=== PATIENT | male | born 1985 | race Caucasian/White ===

== ENCOUNTER 2025-03-01 21:38 | Emergency (ER) | payer OTHER, SELFPAY ==
[2025-03-01 21:47] VITALS: BP 165/112; PULSE 75; TEMP 36.9; O2SAT 98; BMI 50.2
--- OUTSIDE RECORDS SUMMARY | 2025-03-01 21:48 | XMS_ITS | Encounter Summary ---
Author Organization [facility] Address [address] [place] [address] Phone Care Team Providers Care Team Leader Surgery Name Role Phone Unavailable Primary Care Provider Unavailabl e Encounter Details Date Type Department Care Team (Late st Contact Info) Description 05/01/2023 Patient Risk Score ACO Care Management [address] [place] [address] Social History Tobacco Use Types Packs/Day Years Used Date Smoking Tobacco: Never Assessed Sex and Gender Information Value Date Recorded Sex Assigned at Not on file Legal Sex Male 12:54 PM EST Gender Identity Not on file Sexual Orientation Not on file documented as of this encounter Plan of Treatment Not on file documented as of this encounter Visit Diagnoses Not on filedocumented in this encounter
--- OUTSIDE RECORDS SUMMARY | 2025-03-01 21:48 | XMS_ITS | Encounter Summary ---
Author Organization [facility] Address [address] [place] [address] Phone Care Team Providers Care Jacquard Card Cutter Name Role Phone Unavailable Primary Care Provider Unavailabl e Encounter Details Date Type Department Care Team (Late st Contact Info) Description 02/28/2023 Patient Risk Score ACO Care Management [address] [place] [address] Social History Tobacco Use Types [...]
--- OUTSIDE RECORDS SUMMARY | 2025-03-01 21:48 | XMS_ITS | Continuity of Care Document ---
Author Organization [facility] Address [address] [place] [address] Phone Care Team Providers Care Enterprise Application Developer Name Role Phone Royce Boom JURADO Primary Care Provider [phone] Boom Crane DO Attending Provider Allen Ewing DO Attending Provider Care Teams Patient Care Team Team Status: Active Member Role Status Dates Boom Crane DO Primary Care Provider Active Visit Care Team Team Status: Inactive Member Role Status Jun Crane DO Primary Care Provider Active S tart: December 15, 2024 End: December 15, 2024 Boom Crane DO Attending Provider Active Star t: December 15, 2024 End: December 15, 2024 Visit Care Team Team Status: Inactive Member Role Status Jun Crane DO Primary Care Provider Active S tart: December 18, 2024 End: December 18, 2024 Boom Craen DO Attending Provider Active Star t: December 18, 2024 End: December 18, 2024 Visit Care Team Team Status: Inactive Member Role Status Jun Crane DO Primary Care Provider Active S tart: January 04, 2025 End: January 04, 2025 Allen Ewing DO Attending Provider Active Start: January 04, 2025 End: January 04, 2025 Visit Care Team Team Status: Inactive Member Role Status Jun Crane DO Primary Care Provider Active S tart: February 14, 2025 End: February 14, 2025 Allen Ewing DO Attending Provider Active Start: February 14, 2025 End: February 14, 2025 Visit Care Team Team Status: Inactive Member Role Status Dates Boom Crane DO Primary Care Provider Active S tart: February 20, 2025 End: February 20, 2025 Allen Ewing DO Attending Provider Active Start: February 20, 2025 End: February 20, 2025 Visit Care Team Team Status: Inactive Member Role Status Dates Boom Crane DO Primary Care Provider Active S tart: February 20, 2025 End: February 20, 2025 Allen Ewing DO Attending Provider Active Start: February 20, 2025 End: February 20, 2025 Patient Care Team Team Status: Inactive Member Role Status Dates Boom Crane DO Primary Care Provider Active S tart: February 25, 2025 End: February 25, 2025 Allen Ewing DO Attending Provider Active Start: February 25, 2025 End: February 25, 2025 Chief Complaint and Reason for Visit Chief Complaint Admit Date Z79.899, E78.5, R73.9, R35.1, E11.9 Apri l 2024 11:03am review labs December 18, 2024 9:1 3am low back pain and Left hip pain January 04, 2025 7:23am sacroiliac joint pain/ strength enduranc e ROM February 14, 2025 10:00am 7 week follow up February 20, 2025 8:14 am G89.29 M53.3 M54.50 February 20, 2025 9:05 am Left SI joint injection February 25, 2025 1:52pm Reason for Visit Admit Date Diabetes December 18, 2024 9:1 3am Hip pain, left December 18, 2024 9:1 3am Hyperlipidemia December 18, 2024 9:1 3am Hypertension December 18, 2024 9:1 3am Lumbar pain December 18, 2024 9:1 3am Mass in neck December 18, 2024 9:1 3am Umbilical hernia December 18, 2024 9:1 3am Weight loss December 18, 2024 9:1 3am Piriformis syndrome of left side December 7:23am Trochanteric bursitis, left hip January 04, 2025 7:23am Iliotibial band syndrome of left side Ma y 2024 7:23am Chronic SI joint pain January 04, 2025 7:23 am Piriformis syndrome of left side February 202024 8:14am Iliotibial band syndrome of left side Ju 2024 8:14am Low back pain February 20, 2025 8:14 am Chronic SI joint pain February 20, 2025 8: 14am Reason for Referral Referring Provider Name Referring Provider Address Referring Provider Phone Referral Date Requested Appointment Date Referral Reason January 04, 2025 G89.29 - Other chronic pain,M53.3 - Sacrococcygeal disorders, not elsewhere classified,G57.02 - Lesion of sciatic nerve, left lower limb,M70.62 - Trochanteric bursitis, left hip,M76.32 - Iliotibial band syndrome, left leg Allergies, Adverse Reactions, Alerts Allergen Type Severity Reaction Last Updated Verified Status codeine Allergy Unknown Anaphylaxis January 04, 2025 7:26am Yes Active morphine Allergy Unknown Anaphylaxis January 04, 2025 7:26am Yes Active Social History Smoking Status Status Start Date End Date Date of Observa tion Never smoked tobacco (finding) December 05, 2023 9:14am Observation Status Observation Response Date of Response Legal Sex Male (finding) Sex Assigned At Male October Family History Relationship Condition Age at Onset Recorded Date/T emilie mother Hyperlipidemia Unknown Hypertension Unknown father Hyperlipidemia Unknown Hypertension Unknown Diabetes mellitus Unknown Malignant neoplasm Unknown father Diabetes mellitus Unknown Hypertension Unknown mother Hypertension Unknown Problems Active Problems Medical Problem Onset Date Status Comments Diabetes Unknown Active Mass in neck Unknown Active Umbilical hernia Unknown Active Hyperlipidemia Unknown Active Weight loss Unknown Active Enlarged lymph node in neck Unknown Active Lumbar pain Unknown Active Knee pain, left Unknown Active Hip pain, left Unknown Active Sacroiliac pain Unknown Active left side Abdominal pain Unknown Active Hypertension Unknown Active Pneumonia Unknown Active Inactive/Resolved Problems Medical Problem Onset Date Status Comments Abrasion, multiple sites Unknown Resolved Medications Medication Status Dose Units Route Directions Qty Days St art Date Stop Date End Date Instructions Adherence Sumatriptan Succinate 100 mg tablet Discont inued 0 .ROUTE .COMPLEX 2023 11:49a m March 05, 2024 9:43a m take 1 tablet by mouth at onset of migraine headache may repeat in 2 hours if needed. max 2/day Venlafaxine 75 mg capsule,ext ended release 24hr Discont inued 0 .ROUTE .COMPLEX December 09, 2023 8:42am February 06, 2024 8:55a m TAKE 1 CAPSULE BY MOUTH EVERY DAY WITH FOOD Hydrochloro thiazide 25 mg tablet Discont inued 0 .ROUTE .COMPLEX January 03, 2024 1:45pm Septe 2023 12:35 pm TAKE 1 TABLET BY MOUTH IN THE MORNING Losartan 100 mg tablet Discont inued 0 .ROUTE .COMPLEX January 03, 2024 1:45pm Septe 2023 12:35 pm TAKE 1 TABLET BY MOUTH EVERY DAY Propranolol 20 mg tablet Discont inued 0 PO .COMPLEX January 05, 2024 11:28a m January 05, 2024 11:30 am take 2 (20 MG) tablets in the AM and take 1 (20 MG) tablet in the PM Propranolol 20 mg tablet Discont inued 0 .ROUTE .COMPLEX January 05, 2024 11:29a m [facility] 2023 10:01 am TAKE 2 TABLETS BY MOUTH IN THE MORNING AND 1 TABLET IN THE EVENING Venlafaxine 75 mg capsule,ext ended release 24hr Discont inued 0 .ROUTE .COMPLEX February 06, 2024 8:55am [facility] 2023 12:36 pm TAKE 1 CAPSULE BY MOUTH EVERY DAY WITH FOOD Sumatriptan Succinate 100 mg tablet Discont inued 0 .ROUTE .COMPLEX March 05, 2024 9:43am [facility] 2023 12:37 pm TAKE 1 TABLET BY MOUTH AT ONSET OF MIGRAINE HEADACHE MAY REPEAT IN 2 HOURS IF NEEDED. MAX 2 TABS PER DAY. Losartan 100 mg tablet Discont inued 0 .ROUTE .COMPLEX 2023 12:33p m Septe er 2023 3:52p m TAKE 1 TABLET BY MOUTH EVERY DAY Hydrochloro thiazide 25 mg tablet Discont inued 0 .ROUTE .COMPLEX 30 2023 12:35p m Octob er 2023 11:12 am TAKE 1 TABLET BY MOUTH IN THE MORNING Losartan 100 mg tablet Discont inued 0 .ROUTE .COMPLEX 30 2023 3:51pm Octob er 2023 11:01 am TAKE 1 TABLET BY MOUTH EVERY DAY Hydrochloro thiazide 25 mg tablet Discont inued 0 .ROUTE .COMPLEX 30 Octobe r 2023 11:[address] 2023 12:32 pm TAKE 1 TABLET BY MOUTH IN THE MORNING Empaglifloz in (Jardiance) 25 mg tablet Discont inued 25 MG PO Every morning 30 Octobe r 2023 11:47a m [facility] 2023 12:55 pm Losartan 100 mg tablet Discont inued 0 .ROUTE .COMPLEX 30 Octobe r 2023 11:[address] 2023 12:36 pm TAKE 1 TABLET BY MOUTH EVERY DAY Hydrochloro thiazide 25 mg tablet Discont inued 0 .ROUTE .COMPLEX 30 Novemb er 2023 12:31p m [facility] 2023 12:36 pm TAKE 1 TABLET BY MOUTH IN THE MORNING Propranolol 20 mg tablet Discont inued 0 .ROUTE .COMPLEX 90 Novemb er [address] 10:[address] 2023 12:37 pm TAKE 2 TABLETS BY MOUTH IN THE MORNING AND 1 TABLET IN THE EVENING Empaglifloz in (Jardiance) 25 mg tablet Discont inued 0 .ROUTE .COMPLEX 30 Novemb er [address] 2023 12:36 pm TAKE 1 TABLET BY MOUTH EVERY DAY IN THE MORNING Dulaglutide (Trulicity) 0.75 mg/0.5 mL pen injector Discont inued 0 .ROUTE .COMPLEX 2 Novemb er 2023 12:[address] 2023 3:12p m inject 0.75 mg (0.5 mL) subcutaneousl y every week Losartan 100 mg tablet Discont inued 0 .ROUTE .COMPLEX 30 Novemb er 2023 1:16pm [facility]cem [facility] 2023 2:18p m TAKE 1 TABLET BY MOUTH EVERY DAY Venlafaxine 75 mg capsule,ext ended release 24hr Discont inued 75 MG PO Daily 30 Dece er 2023 12:26p m January 29, 2025 4:20p m Losartan 100 mg tablet Discont inued 0 .ROUTE .COMPLEX 30 Decemb er 2023 2:18pm Janua ry 2024 10:37 am TAKE 1 TABLET BY MOUTH EVERY DAY Dulaglutide (Trulicity) 1.5 mg/0.5 mL pen injector Discont inued 0 .ROUTE .COMPLEX 2 Januar y 5 1:44pm 2024 12:11 pm INJECT 1.5MG (0.5 ML) SUBCUTANEOUSL Y ONCE PER WEEK Sumatriptan Succinate 100 mg tablet Discont inued 0 .ROUTE .COMPLEX 9 2024 1:44pm 2024 10:37 am TAKE 1 TABLET BY MOUTH WHEN NEEDED FOR MIGRAINE HEADACHE MAY REPEAT IN 2 HOURS IF NEEDED. MAX 2 TABS PER DAY. Sumatriptan Succinate 100 mg tablet Active 100 MG PO .COMPLEX 9 2024 12:37p m 100 mg orally TAKE 1 TABLET BY MOUTH WHEN NEEDED FOR MIGRAINE HEADACHE MAY REPEAT IN 2 HOURS IF NEEDED. MAX 2 TABS PER DAY.; Unknown Metformin 500 mg tablet extended release 24 hr Active 0 .ROUTE .COMPLEX 60 2024 9:47am TAKE 2 TABLETS BY MOUTH EVERY DAY WITH EVENING MEAL Unknown Hydrochloro thiazide 25 mg tablet Discont inued 0 .ROUTE .COMPLEX October 30, 2024 4:29pm January 29, 2025 4:20p m TAKE 1 TABLET BY MOUTH IN THE MORNING Losartan 100 mg tablet Active 0 .ROUTE .COMPLEX November 19, 2024 9:57am TAKE 1 TABLET BY MOUTH EVERY DAY Unknown Dulaglutide (Trulicity) 3 mg/0.5 mL pen injector Active 0 .ROUTE .COMPLEX December 28, 2024 8:09am inject 3 mg (0.5 mL) subcutaneousl y every week Unknown Empaglifloz in (Jardiance) 25 mg tablet Active 0 .ROUTE .COMPLEX December 31, 2024 9:19am TAKE 1 TABLET BY MOUTH EVERY DAY IN THE MORNING Unknown Hydrochloro thiazide 25 mg tablet Active 0 .ROUTE .COMPLEX January 29, 2025 4:19pm TAKE 1 TABLET BY MOUTH IN THE MORNING Unknown Venlafaxine 75 mg capsule,ext ended release 24hr Active 0 .ROUTE .COMPLEX January 29, 2025 4:19pm TAKE 1 CAPSULE BY MOUTH EVERY DAY Unknown Propranolol 20 mg tablet Active 0 .ROUTE .COMPLEX January 29, 2025 4:19pm TAKE 2 TABLETS BY MOUTH IN THE MORNING AND 1 TABLET IN THE EVENING Unknown Sumatriptan Succinate (Imitrex) 100 mg Tablet Discont inued 100 MG PO As Directed as needed for Migraine Headache 2019 12:00a m Febru 2023 11:49 am Hydrochloro thiazide 25 mg Tablet Discont inued 25 MG PO Daily 2019 12:00a m January 03, 2024 1:45p m Propranolol 20 mg Tablet Discont inued 40 MG PO Every morning 2019 12:00a m December 05, 2023 9:56a m Propranolol 20 mg tablet Discont inued 20 MG PO Daily at bedtime 2019 12:00a m December 05, 2023 9:56a m Losartan 100 mg tablet Discont inued 100 MG PO Daily 2019 12:00a m January 03, 2024 1:46p m Propranolol 20 mg tablet Discont inued 40 MG PO Every morning December 05, 2023 9:55am January 05, 2024 11:29 am 2 in am 1 in pm Metformin 500 mg tablet extended release 24 hr Discont inued 1000 MG PO Daily November 04, 2023 1:00am December 05, 2023 9:09a m Empaglifloz in (Jardiance) 10 mg tablet Discont inued 10 MG PO Daily November 04, 2023 1:00am December 05, 2023 10:33 am Venlafaxine 75 mg capsule,ext ended release 24hr Discont inued 75 MG PO Daily November 04, 2023 1:00am December 09, 2023 8:45a m Metformin 500 mg tablet extended release 24 hr Discont inued 1000 MG PO Daily December 05, 2023 9:06am December 05, 2023 10:38 am 2 tablets by mouth daily with evening meal Metformin 500 mg tablet extended release 24 hr Discont inued 0 PO Daily December 05, 2023 10:37a m [facility] 2023 12:40 pm 2 tablets by mouth daily with evening meal Metformin 500 mg tablet extended release 24 hr Discont inued 500 MG PO .COMPLEX Novemb er 2023 12:39p m Febru 2024 9:48a m 500 mg orally 2 tablets by mouth daily with evening meal; with evening meal Blood-Gluco se Meter kit Active 0 .Route December 05, 2023 12:00a m As directed Blood Sugar Diagnostic (Blood Glucose Test) strip Active 0 .Route December 05, 2023 12:00a m As directed Lancets (Fingerstix Lancets) misc Active 0 .Route December 05, 2023 12:00a m As directed Empaglifloz in (Jardiance) 25 mg tablet Discont inued 25 MG PO Every morning 30 December 05, 2023 12:00a m Octob er 2023 11:47 am Nystatin 100,000 unit/gram powder Active 1 APPLIC TOPICA L Twice daily March 28, 2024 12:00a m Unknown Empaglifloz in (Jardiance) 25 mg tablet Discont inued 25 MG PO Every morning Novemb er 2023 12:34p m December 31, 2024 9:19a m Hydrochloro thiazide 25 mg tablet Discont inued 25 MG PO Every morning Novemb er 2023 12:34p m October 30, 2024 4:29p m Losartan 100 mg tablet Discont inued 100 MG PO Daily Novemb er [address] 2023 1:16p m Venlafaxine 75 mg capsule,ext ended release 24hr Discont inued 75 MG PO Daily Novemb er 2023 12:35p m Dece 2023 12:27 pm Propranolol 20 mg tablet Discont inued 20 [facility] 12:[facility] January 29, 2025 4:20p m 20 mg orally TAKE 2 TABLETS BY MOUTH IN THE MORNING AND 1 TABLET IN THE EVENING; Sumatriptan Succinate 100 mg tablet Discont inued 100 MG PO .COMPLEX Novemb er 2023 12:37p m 2024 1:44p m 100 mg orally TAKE 1 TABLET BY MOUTH AT ONSET OF MIGRAINE HEADACHE MAY REPEAT IN 2 HOURS IF NEEDED. MAX 2 TABS PER DAY.; Dulaglutide (Trulicity) 1.5 mg/0.5 mL pen injector Discont inued 1.5 MG SUBCUT every week 2 Novemb er 2023 1:00am 2024 1:44p m Diclofenac Sodium 75 mg tablet,elan yed release (DR/EC) Active 75 MG PO Twice daily as needed for pain February 20, 2025 12:00a m Unknown Doxycycline Hyclate 100 mg capsule Discont inued 100 MG PO Twice daily 20 10 Octobe r 2023 12:00a m [facility] 2023 12:29 pm Semaglutide (Ozempic) 0.25 mg or 0.5 mg (2 mg/3 mL) pen injector Discont inued 0.25 MG SUBCUT every week 3 Octobe r 2023 12:00a m Octob er 2023 2:15p m for 4 weeks Dulaglutide (Trulicity) 0.75 mg/0.5 mL pen injector Discont inued 0.75 MG SUBCUT every week 2 Octobe r [address] 2023 12:55 pm Dulaglutide (Trulicity) 3 mg/0.5 mL pen injector Discont inued 3 MG SUBCUT every week 2 [facility] 2023 1:00am December 28, 2024 8:10a m Azithromyci n 250 mg tablet Discont inued 0 PO .COMPLEX 6 [facility] 2023 1:00am [facility] 2023 1:06p m For 250 mg dose pack: take 500 mg today (day 1), then 250 mg for 4 days (days 2-5) PO Albuterol Sulfate 90 mcg/actuati on HFA aerosol inhaler Discont inued 2 PUFF INHALA TION EVERY 4-6 HOURS as needed for shortness of breath or wheezing 8.5 [facility] 2023 1:00am December 18, 2024 9:18a m Prednisone 20 mg tablet Discont inued 20 MG PO .COMPLEX 10 [facility] 2023 1:00am [facility] 2023 1:06p m Take 2 tabs po daily x 5 days Losartan 100 mg tablet Discont inued 100 MG PO Daily 2024 10:36a m November 19, 2024 9:58a m Sumatriptan Succinate 100 mg tablet Discont inued 100 MG PO .COMPLEX Augr y 2024 10:37a m Jan ry 2024 12:38 pm 100 mg orally TAKE 1 TABLET BY MOUTH WHEN NEEDED FOR MIGRAINE HEADACHE MAY REPEAT IN 2 HOURS IF NEEDED. MAX 2 TABS PER DAY.; Meloxicam 15 mg tablet Discont inued 15 MG PO Daily January 04, 2025 12:00a m February 20, 2025 8:37a m Immunizations Immunization Event Date Not Given Reason Dose Number Accounting File Clerk Lot Number Vaccine Information Statement (VIS) Detail Administration Location diphtheria, TT and pertussis vaccine January 27, 1988 diphtheria, TT and pertussis vaccine March 23, 1988 diphtheria, TT and pertussis vaccine May 24, 1988 diphtheria, TT and pertussis vaccine January 10, 1989 diphtheria, TT and pertussis vaccine February 23, 1993 Hepatitis B Vaccine, adol/ped dosage February 11, 2000 Hepatitis B Vaccine, adol/ped dosage March 24, 2000 Hepatitis B Vaccine, adol/ped dosage August 26, 2000 Hib, unspecified formulation June 09, 1989 Meningococcal Vaccine (MCV4P) April 07, 2006 Measles, Mumps, and Rubella Virus Vaccine January 10, 1989 Measles, Mumps, and Rubella Virus Vaccine February 11, 2000 trivalent poliovirus vaccine, live, oral January 27, 1988 trivalent poliovirus vaccine, live, oral March 23, 1988 trivalent poliovirus vaccine, live, oral January 10, 1989 trivalent poliovirus vaccine, live, oral February 23, 1993 Td(adult) unspecified formulation February 11, 2000 Tetanus, Diphtheria, Pertussis (Tdap) October 08, 2015 Tetanus, Diphtheria, Pertussis (Tdap) November 04, 2023 [id number] [facility] Procedures Procedure Date Performed Status Urine Culture December 15, 2024 completed XR lumbar spine AP/LAT/FLX/EXT February 20, 2025 9 :22am completed XR si joints February 20, 2025 9:22am completed Relevant Diagnostic Tests and/or Laboratory Data Laboratory Results Test Collection Date/Time Result Date/Time Result Interpretation Reference Range Result Comment Performing Site Correcte d White Blood Count December 15, 2024 11:10am December 15, 2024 12:20pm 7.8 10*3/uL 4.1-10.5 [facility] [id number] [address] [facility] [address] Uncorrec bharati WBC Count December 15, 2024 11:10am December 15, 2024 12:20pm 7.8 10*3/uL 4.1-10.5 [facility] [id number] [address] [facility] [address] Red Blood Count December 15, 2024 11:10am December 15, 2024 12:20pm 5.24 10*6/uL 3.90-5.60 [facility] [id number] [address] [facility] [address] Hemoglob in December 15, 2024 11:10am December 15, 2024 12:20pm 15.6 g/dL 13.0-17.0 [facility] [id number] [address] [facility] [address] Hematocr it December 15, 2024 11:10am December 15, 2024 12:20pm 45.2 % 38.8-50.0 [facility] [id number] [address] [facility] [address] Mean Corpuscu lar Volume December 15, 2024 11:10am December 15, 2024 12:20pm 86.2 fL 83.5-101 [facility] [id number] [address] [place] [address] Mean Corpuscu lar Hemoglob in December 15, 2024 11:10am December 15, 2024 12:20pm 29.8 pg 27.5-35.2 [facility] [id number] [address] [facility] [address] Mean Corpuscu lar Hemoglob in Concent December 15, 2024 11:10am December 15, 2024 12:20pm 34.5 g/dL 32.5-35.6 [facility] [id number] [address] [place] [address] Red Cell Distribu tion Width December 15, 2024 11:10am December 15, 2024 12:20pm 13.4 % 12.0-14.8 [facility] [id number] [address] [place] [address] Platelet Count December 15, 2024 11:10am December 15, 2024 12:20pm 202 10*3/uL 150-450 [facility] [id number] [address] [place] [address] Mean Platelet Volume December 15, 2024 11:10am December 15, 2024 12:20pm 9.2 fL 6.6-10.1 [facility] [id number] [address] [facility] [address] Neutroph ils (%) (Auto) December 15, 2024 11:10am December 15, 2024 12:20pm 61.1 % . [facility] [id number] [address] [facility] [address] Lymphocy wilberto (%) (Auto) December 15, 2024 11:10am December 15, 2024 12:20pm 29.2 % . [facility] [id number] [address] [facility] [address] Monocyte s (%) (Auto) December 15, 2024 11:10am December 15, 2024 12:20pm 8.0 % . [facility] [id number] [address] [facility] [address] Eosinoph ils (%) (Auto) December 15, 2024 11:10am December 15, 2024 12:20pm 1.1 % . [facility] [id number] [address] [facility] [address] Basophil s (%) (Auto) December 15, 2024 11:10am December 15, 2024 12:20pm 0.6 % . [facility] [id number] [address] [facility] [address] Nucleate d RBC Relative Count (auto) December 15, 2024 11:10am December 15, 2024 12:20pm 0.3 /100{WBC} 0-0.5 [facility] [id number] [address] [facility] [address] Neutroph ils # (Auto) December 15, 2024 11:10am December 15, 2024 12:20pm 4.8 10*3/uL 1.8-7.7 [facility] [id number] [address] [facility] [address] Lymphocy wilberto # (Auto) December 15, 2024 11:10am December 15, 2024 12:20pm 2.3 10*3/uL 1.00-4.8 [facility] [id number] [address] [facility] [address] Monocyte s # (Auto) December 15, 2024 11:10am December 15, 2024 12:20pm 0.6 10*3/uL 0.0-0.8 [facility] [id number] [address] [facility] [address] Eosinoph ils # (Auto) December 15, 2024 11:10am December 15, 2024 12:20pm 0.1 10*3/uL 0.0-0.45 [facility] [id number] [address] [facility] [address] Basophil s # (Auto) December 15, 2024 11:10am December 15, 2024 12:20pm 0.0 10*3/uL 0.0-0.2 [facility] [id number] [address] [facility] [address] Urine Color December 15, 2024 11:10am December 15, 2024 12:20pm Light-yel low Yellow [facility] [id number] [address] [facility] [address] Urine Appearan ce December 15, 2024 11:10am December 15, 2024 12:20pm Clear Clear [facility] [id number] [address] [place] [address] Urine Specific [place] December 15, 2024 11:10am December 15, 2024 12:21pm 1.035 Above high normal 1.001-1.03 0 [facility] [id number] [address] [facility] [address] Urine pH December 15, 2024 11:10am December 15, 2024 12:21pm 5.5 5.0-9.0 [facility] [id number] [address] [facility] [address] Urine Leukocyt e Esterase December 15, 2024 11:10am December 15, 2024 12:21pm Negative Negative [facility] [id number] [address] [place] [address] Urine Nitrite December 15, 2024 11:10am December 15, 2024 12:21pm Negative Negative [facility] [id number] [address] [place] [address] Urine Protein December 15, 2024 11:10am December 15, 2024 12:21pm Negative mg/dL Negative [facility] [id number] [address] [place] [address] Urine Glucose (UA) December 15, 2024 11:10am December 15, 2024 12:21pm >=1000 mg/dL Above high normal Normal [facility] [id number] [address] [facility] [address] Urine Ketones December 15, 2024 11:10am December 15, 2024 12:21pm Negative Negative [facility] [id number] [address] [facility] [address] Urine Urobilin ogen December 15, 2024 11:10am December 15, 2024 12:21pm Normal mg/dL Normal [facility] [id number] [address] [facility] [address] Urine Bilirubi n December 15, 2024 11:10am December 15, 2024 12:21pm Negative Negative [facility] [id number] [address] [facility] [address] Urine Occult Blood December 15, 2024 11:10am December 15, 2024 12:21pm Negative Negative [facility] [id number] [address] [facility] [address] Urine RBC December 15, 2024 11:10am December 15, 2024 12:21pm 1-2 [HPF] 0-4 [facility] [id number] [address] [facility] [address] Urine WBC December 15, 2024 11:10am December 15, 2024 12:21pm 1-2 [HPF] 0-4 [facility] [id number] [address] [facility] [address] Urine Squamous Epitheli al Cells December 15, 2024 11:10am December 15, 2024 12:21pm 1-2 [HPF] 0-2 [facility] [id number] [address] [facility] [address] Urine Bacteria December 15, 2024 11:10am December 15, 2024 12:21pm None seen [HPF] None Seen [facility] [id number] [address] [facility] [address] Urine Hyaline Casts December 15, 2024 11:10am December 15, 2024 12:21pm None [LPF] 0-8 [facility] [id number] [address] [facility] [address] Urine Mucus December 15, 2024 11:10am December 15, 2024 12:21pm Rare [LPF] [facility] [facility] [id number] [address] [facility] [address] Glucose Level December 15, 2024 11:10am December 15, 2024 12:36pm 104 mg/dL Above high normal 70-100 ADA recommended reference rangeRandom Glucose Reference Range is dependent on time and content of last meal. Glucose of more than 200 mg/dL in a nonstressed , ambulatory subject supports the diagnosis of Diabetes Mellitus. [facility] [id number] [address] [place] [id number] Blood Urea Nitrogen December 15, 2024 11:10am December 15, 2024 12:36pm 16 mg/dL 7-25 [facility] [id number] [address] [place] [id number] Creatini ne December 15, 2024 11:10am December 15, 2024 12:36pm 0.86 mg/dL 0.70-1.30 [facility] [id number] [address] [place] [id number] Estimate d GFR (CKD-EPI ) December 15, 2024 11:10am December 15, 2024 12:36pm > 60.0 mL/Min [facility] [id number] [address] [facility] [address] Sodium Level December 15, 2024 11:10am December 15, 2024 12:36pm 140 mmol/L 136-145 [facility] [id number] [address] [place] [id number] Potassiu m Level December 15, 2024 11:10am December 15, 2024 12:36pm 4.2 mmol/L 3.5-5.1 [facility] [id number] [address] [place] [id number] Chloride Level December 15, 2024 11:10am December 15, 2024 12:36pm 103 mmol/L 98-107 [facility] [id number] [address] [place] [id number] Carbon Dioxide Level December 15, 2024 11:10am December 15, 2024 12:36pm 28.2 mmol/L 21.0-31.0 [facility] [id number] [address] [place] [id number] Anion Gap December 15, 2024 11:10am December 15, 2024 12:36pm 13.0 mEq/L 6.0-15.0 [facility] [id number] [address] [place], [place] [id number] Calcium Level December 15, 2024 11:10am December 15, 2024 12:36pm 9.7 mg/dL 8.6-10.3 [facility] [id number] [address] [place] [address] Total Protein December 15, 2024 11:10am December 15, 2024 12:36pm 7.5 g/dL 6.4-8.9 [facility] [id number] [address] [place] [address] Albumin December 15, 2024 11:10am December 15, 2024 12:36pm 4.3 g/dL 3.5-5.7 [facility] [id number] [address] [place] [address] Globulin December 15, 2024 11:10am December 15, 2024 12:36pm 3.2 g/dL [facility] [id number] [address] [place] [address] Albumin/ Globulin Ratio December 15, 2024 11:10am December 15, 2024 12:36pm 1.3 [facility] [id number] [address] [place] [address] Total Bilirubi n December 15, 2024 11:10am December 15, 2024 12:36pm 0.7 mg/dL 0.3-1.0 [facility] [id number] [address] [place] [address] Aspartat e Amino Transf (AST/SGO T) December 15, 2024 11:10am December 15, 2024 12:36pm 22 U/L 13-39 [facility] [id number] [address] [place], [place] [address] Alanine Aminotra nsferase (ALT/SGP T) December 15, 2024 11:10am December 15, 2024 12:36pm 30 U/L 7-52 [facility] [id number] [address] [place], [place] [address] Alkaline Phosphat ase December 15, 2024 11:10am December 15, 2024 12:36pm 56 U/L 34-104 [facility] [id number] [address] [facility] [address] Choleste rol Level December 15, 2024 11:10am December 15, 2024 12:36pm 115 mg/dL Below low normal 140-200 Chol less than 200 mg/dl low riskChol 201-239 mg/dl borderline riskChol 240 mg/dl and greater high risk [facility] [id number] [address] [facility] [address] HDL Choleste rol December 15, 2024 11:10am December 15, 2024 12:36pm 38 mg/dL 23-92 HDL CHOL ATP-III CLASSIFICAT ION Cardiovascu lar RiskHDL > or equal to 60 mg/dL LOWHDL < 40 mg/dL HIGH [facility] [id number] [address] [facility] [address] Triglyce rides Level December 15, 2024 11:10am December 15, 2024 12:36pm 236 mg/dL Above high normal 0-149 TRIG ATP III CLASSIFICAT IONTRIG less than 150 mg/dL NormalTRIG 150-199 mg/dL Borderline highTRIG 200-500 mg/dL High TRIG greater than 500 mg/dL Very highStandar d traceable to the Center for Disease Conrtrol and Prevention (CDC) test method. [facility] [id number] [address] [facility] [address] LDL Choleste rol, Calculat ed December 15, 2024 11:10am December 15, 2024 12:36pm 30 mg/dL 0-100 LDL ATP III CLASSIFICAT IONLDL less than 100 mg/dL OptimalLDL 100-129 mg/dL Near or above optimalLDL 130-159 mg/dL Borderline highLDL 160-189 mg/dL HighLDL greater than 189 mg/dL Very high [facility] [id number] [address] [facility] [address] VLDL Choleste rol December 15, 2024 11:10am December 15, 2024 12:36pm 47 mg/dL [facility] [id number] [address] [facility] [address] Choleste rol/HDL Ratio December 15, 2024 11:10am December 15, 2024 12:36pm 3.0 <5.0 [facility] [id number] [address] [place] [address] Pharmacy Creatini ne Clearanc e (Chem December 15, 2024 11:10am December 15, 2024 12:36pm N/A [facility] [id number] [address] [place] [address] Hemoglob in A1c December 15, 2024 11:10am December 15, 2024 12:21pm 5.7 % Above high normal 4.3-5.6 Increased risk for diabetes: 5.7 - 6.4diabetes : >6.4glycemi c control for adults with diabetes: <7.0 [facility] [id number] [address] [place], [place] [address] Estimate d Average Glucose December 15, 2024 11:10am December 15, 2024 12:21pm 117 mg/dL [facility] [id number] [address] [place], [place] [address] Urine Random Microalb umin December 15, 2024 11:10am December 15, 2024 1:19pm < 0.7 mg/dL 0.0-1.8 [facility] [id number] [address] [place] [address] Microbiology Results Procedure Source Result Collection Date/Time Result Date/Time Result Comment Performing Site Urine Culture Urine 2 Days December 15 11:10am December 17, 2024 8:40am [facility] [id number] [address] [place], [place] [address] Diagnostic Imaging Reports Author Zoltan Montaño [facility] Authored February 20, 2025 10:1 1am Report Dictated Date/Time Dictated By Status Radiology Report February 20, 2025 10:11am Zoltan Montaño Jr DO completed [facility] [address] [address] XRay Report Signed Patient: Allen Womack MR#: [id number] : 1985 Acct:[id number] Age/Sex: 39 / M ADM Date: 5 Loc: XD Room: [facility]: Allen Ewing DO Copies to: Allen Ewing DO~ Ordering Provider: Allen Ewing DO Date of Service: 02/20/25 XR/XR si joints: G89.29 - Other chronic pain ([id number]) XR/XR lumbar spine AP/LAT/FLX/EXT: M54.50 - Low back pain, unspecified LUMBAR SPINE - 4 views, SI joints 3 views CLINICAL HISTORY: Back pain for 2 years. Radiates to left hip into leg. COMPARISON: None FINDINGS: Lumbar spine: Vertebral body heights appear maintained. Grade 1 spondylolisthesis of L5 on S1 due to bilateral pars defects with associated mild disc space narrowing. No pathological motion on flexion or extension views. SI joints: SI joints appear unremarkable. Sacral foramina appear intact. XR/XR lumbar spine AP/LAT/FLX/EXT IMPRESSION: GRADE 1 SPONDYLOLISTHESIS OF L5 ON S1 DUE TO BILATERAL PARS DEFECTS WITH ASSOCIATED MILD DISC SPACE NARROWING. Impression dictated by: Zoltan Montaño Jr., D.OMary Ann 02/20/2025 10:12 AM Dictation Location: [place] [address] Transcribed By: [facility] 02/20/25 1012 Dictated By: Zoltan Montaño Jr, DO 02/20/25 1011 Signed By: <Electronically signed by Zoltan Montaño Jr, DO in OV> 02/20/25 1012 Vital Signs Vital Reading Result Reference Range Collection Date/Time Height 69 [in_i] December 18 9:08am Weight 163.29 kg December 18 9:08am Body Temperature 98.2 [degF] 97.6-99.0 December 18, 2024 9:08am Heart Rate 79 /min 60-100 December 18 9:08am Oxygen saturation by Pulse oximetry 95 % 95-100 December 18, 2024 9:0 8am BP Systolic 120 mm[Hg] 100-140 December 18 9:08am BP Diastolic 82 mm[Hg] 60-100 December 18 9:08am BMI (Body Mass Index) 53.1 kg/m2 December 18, 2024 9:08am Height 69 [in_i] January 04, 2025 7 :26am Weight 162.38 kg January 04, 2025 7 :26am Heart Rate 77 /min 60-100 January 04, 2025 7 :26am Respiratory rate 20 /min 12-24 January 04 7:26am Oxygen saturation by Pulse oximetry 95 % 95-100 January 04, 2025 7:26am BP Systolic 120 mm[Hg] 100-140 January 04, 2025 7 :26am BP Diastolic 80 mm[Hg] 60-100 January 04, 2025 7 :26am BMI (Body Mass Index) 52.8 kg/m2 December 7:26am Height 70 [in_i] February 20, 2025 8:20am Body Temperature 97.8 [degF] 97.6-99.0 February 20, 2025 8:20am Heart Rate 74 /min 60-100 February 20, 2025 8:20am Oxygen saturation by Pulse oximetry 98 % 95-100 February 20, 2025 8:20 am BP Systolic 134 mm[Hg] 100-140 February 20, 2025 8:20am BP Diastolic 78 mm[Hg] 60-100 February 20, 2025 8:20am Advance Directives Advance Directive Response Recorded Date/ Time Advance Directives No December 26, 018 8:50am Insurance Providers Guarantor Alma Ramos Address [address] [place] [id number] Contact Info. Home Phone: Payer Policy Id Subscriber's Name Subscriber Id Effective Date Expiration Date [place] [id number] Alma Ramos [id number] [employer] [id number] Alma Ramos [id number] [employer] [id number] Alma Ramos [id number] Encounters Encounter Location(s) Arrival/Admit Date Discharge/Depart Date Provider(s) Departed Clinical -Lab [facility] December 15, 2024 11:03am December 15, 2024 11:04am Boom Crane DO Departed Physician/Provi césar Office Visit -[facility] December 18, 2024 9:13am December 18, 2024 9:48am Boom Crane DO Departed Physician/Provi césar Office Visit -[facility] January 04, 2025 7:23am January 04, 2025 8:09am Allen Ewing DO Discharged Recurring -[facility] [place] February 14, 2025 10:00am February 14, 2025 10:01am Allen Ewing DO Departed Physician/Provi césar Office Visit -[facility] February 20, 2025 8:14am February 20, 2025 8:41am Allen Ewing DO Departed Clinical -[facility] February 20, 2025 9:05am February 20, 2025 9:06am Allen Ewing DO Departed Physician/Provi césar Office Visit -[facility] February 25, 2025 1:52pm February 25, 2025 2:30pm Allen Ewing DO Recent Diagnosis Onset Date Admit Date Diabetes Unknown December 18, 2024 9:13am Hip pain, left Unknown December 18, 2024 9:13am Hyperlipidemia Unknown December 18, 2024 9:13am Hypertension Unknown December 18, 2024 9:13am Lumbar pain Unknown December 18, 2024 9:13am Mass in neck Unknown December 18, 2024 9:13am Umbilical hernia Unknown December 18 9:13am Weight loss Unknown December 18, 2024 9:13am Piriformis syndrome of left side Unknown January 04, 2025 7:23am Trochanteric bursitis, left hip Unknown January 04, 2025 7:23am Iliotibial band syndrome of left side Unknown January 04, 2025 7:23am Chronic SI joint pain Unknown January 04, 2 025 7:23am Piriformis syndrome of left side Unknown February 20, 2025 8:14am Iliotibial band syndrome of left side Unknown February 20, 2025 8:14am Low back pain Unknown February 20, 2025 8:14am Chronic SI joint pain Unknown February 20, 2025 8:14am Assessments Author Boom Crane [facility] Authored December 18, 2024 9:5 8am The above note written by __ _Maikel Najera____ acting as human recorder, note dictated by Dr. Pacheco .I performed the above HPI, ROS, and Examination. I formulated and dictated the treatment plan and was present for entire encounter. Boom Crane D.O. Plan of Treatment Author Maikel Najera [facility] Authored December 18, 2024 9:4 8am Blood pressure is controlled . Discussed cholesterol results with patient today. Total is 115. HDL is 38. LDL is 30. Triglycerides are 236. VLDL is 47. I did recommend that he start taking [employer] Fish Oil Minis and work his way up to taking two of these per day. Anticipate that this will help lower his triglycerides. He should continue to monitor his intake of carbs and sugars and stay active. His home blood sugar readings are between 100-120. He is handling the Trulicity better recently and admits he is eating more than he was. Discussed blood sugar results with patient today. Glucose is 104. HgA1C is down from 7.0 to 5.7. The Trulicity is working well for him. For now he will continue on the same dose. Continue to monitor intake of carbs and sugars. Stay active. If he finds that he is more hungry and is eating more than normal he should call and we will increase the dose of Trulicity. He has lost another three pounds since last seen. He feels he has lost about 40 pounds. He is tender in the bursa sac on exam today. We discussed bursitis today, and explained that he can see an crm marketing specialist who can discuss providing him with an injection to help calm this down. Will refer to Dr. Ewing for evaluation. He voices that his low back is bothering him again. If he sits he has trouble walking when he gets up. He has pain in his left hip but it stops and does not travel down past his left knee. I did advise him that Prednisone can be used for treatment however this can raise his blood sugar. He would like to see Dr. Ewing for his back and his hip pain. A referral is provided. He was unable to see a general surgery in the past because they wanted him to lose weight before surgery could be done. He is now getting pain on both sides of the hernia and is not sure if this should be repaired now or not. I did recommend that he see the general surgeon again. He has lost 40 pounds. I did recommend he see Dr. Hope and he agrees. His dad passed in August from gall bladder cancer and I do want him to mention this to Dr. Hope. He has a lump on the left side of his neck that he has never noticed before. On exam I did advise him that this appears to be a lymph node. He voices that there was one day it hurt but otherwise he does not notice it. He thinks it has gotten a little bit larger than it was initially. We discussed the risks/benefits of being exposed to radiation. I will order a CT scan of the soft tissue of the neck with contrast to rule out abnormalities. He is agreeable to this. Author Allen [facility] Authored February 20, 2025 8:47 am Will obtain x-rays as patien t continues to have SI joint pain and therapy has not significantly improved this pain. Will contact patient with the x-rays and will likely plan to do an SI joint injection. Patient is to continue doing home exercises. Patient is to continue doing home exercises for this and will switch to diclofenac from Mobic given that it has not been helpful for him. Explained to patient he needs to aggressively stretch the IT band otherwise it will not likely improve. He voiced understanding of this and agrees. Patient is having some low back pain as well and will get x-rays as he has never had low back x-rays before and I want to see how much arthritis there is and then. He will be contacted with the x-ray results. Author Allen [facility] Authored January 04, 2025 8:11am On exam today patient has si gnificant pain in the left SI joint. He will be placed on Mobic 15 mg and sent to PT for this. He will be placed on Mobic 15 mg and sent to PT for this. He will be placed on Mobic 15 mg and sent to PT for this. He will be placed on Mobic 15 mg and sent to PT for this. Future Tests Future scheduled test information is unavailable Pending Tests Test Name Ordered Date Scheduled Date Comprehensive Metabolic Panel December 18, 2024 9 :25am 6 Months Future Visits Future appointment information is unavailable Referrals to Other Providers Reason for Referral Referral Start Date Provider Provider Contact Information Provider Address G89.29 - Other chronic pain,M53.3 - Sacrococcygeal disorders, not elsewhere classified,G57.02 - Lesion of sciatic nerve, left lower limb,M70.62 - Trochanteric bursitis, left hip,M76.32 - Iliotibial band syndrome, left leg January 04, 2025 [facility] Work Phone: [address] [place] [phone] Future Procedures Procedure Name Ordered Date Scheduled Date A1C with Estimated Average Glu December 18, 2024 9:25am 6 Months Complete Blood Count Auto Diff December 18, 2024 9:25am 6 Months Lipid Panel December 18, 2024 9:25am 6 Months Thyroid Stimulating Hormone December 18, 2024 9:2 5am 6 Months Future Medications Future medication information is unavailable Patient Instructions Instruction Admit Date Low back pain in adults December 18, 2024 9:13am Low back pain in adults February 20, 2025 8:14am
--- OUTSIDE RECORDS SUMMARY | 2025-03-01 21:48 | XMS_ITS | Clinical Summary ---
Author Organization [facility] Address [address] [place] [address] Phone Care Team Providers Care Recycling Collections Driver Name Role Phone Unavailable Primary Care Provider Unavailabl e Social History Tobacco Use Types Packs/Day Years Used Date Smoking Tobacco: Never Assessed Sex and Gender Information Value Date Recorded Sex Assigned at Not on file Legal Sex Male 12:54 PM EST Gender Identity Not on file Sexual Orientation Not on file Plan of Treatment Health Maintenance Due Date Last Done Comments HIV Screening 1985 Lipid Panel 1985 Yearly Adult Physical 1985 MMR Vaccines (1 of 1 - Stand dora series) 11/08/1988 Varicella Vaccines (1 of 2 - 13+ 2-dose series) 11/08/2000 Hepatitis C Screening 11/08/2005 Hepatitis B Vaccines (1 of 3 - 19+ 3-dose series) 11/08/2006 DTaP/Tdap/Td Vaccines (1 - Tdap) 11/08/2009 COVID-19 Vaccine ( - 2023-2 5 season) 2024 Influenza Vaccine (#1) 2025 Zoster Vaccines (1 of 2) 11/08/2037 HIB Vaccines Aged Out No longer eligi ble based on patient's age to complete this topic HPV Vaccines (No Doses Required) Completed Hepatitis A Vaccines Aged Out No long er eligible based on patient's age to complete this topic IPV Vaccines Aged Out No longer eligi ble based on patient's age to complete this topic Meningococcal Vaccine Aged Out No huber paty eligible based on patient's age to complete this topic Pneumococcal Vaccine: Pediat rics and At-Risk Adult Patients Aged Out No longer kayla gible based on patient's age to complete this topic Rotavirus Vaccines Aged Out No longer eligible based on patient's age to complete this topic
--- OUTSIDE RECORDS SUMMARY | 2025-03-01 21:48 | XMS_ITS | Encounter Summary ---
Author Organization [facility] Address [address] [place] [address] Phone Care Team Providers Care Netbackup Administrator Name Role Phone Unavailable Primary Care Provider Unavailabl e Encounter Details Date Type Department Care Team (Late st Contact Info) Description 03/31/2023 Patient Risk Score ACO Care Management [address] [place] [address] Social History Tobacco Use Types [...]
--- NOTE | 2025-03-01 21:50 | XR_ITS ---
[address] [address] Patient Name: DANIEL REARDON MRN: [id number] date: 1985 Sex: M Assigned Patient Location: ED.MAIN Current Patient Location: Accession/Order Number: [id number] Exam Date: 03/02/2025 09:26 Report Date: 03/02/2025 09:28 At the request of: LACEY CASE MD Procedure: XR ankle RT min 3V 3 views right foot plain film COMPARISON:None HISTORY: Right foot and ankle pain. Injury ACUTE FINDINGS: None DEGENERATIVE CHANGE: Mild SOFT TISSUE FINDINGS: Unremarkable JOINT EFFUSION: None POSTOP CHANGES: None BONE MINERALIZATION: Adequate XR/XR foot RT min 3V IMPRESSION: No acute findings. 3 views right ankle No acute displaced fracture. Calcaneal spurring. Lateral soft tissue prominence. IMPRESSION: No acute displaced fracture Impression dictated by: Jaime Mims M.D. 03/02/2025 9:28 AM Dictation Location: [place] Electronically authenticated by: [id number] Y Date: 03/02/2025 09:28
--- NOTE | 2025-03-01 21:50 | XR_ITS ---
[address] [address] Patient Name: DANIEL REARDON MRN: [id number] date: 1985 Sex: M Assigned Patient Location: ED.MAIN Current Patient Location: Accession/Order Number: [id number] Exam Date: 03/02/2025 09:26 Report Date: 03/02/2025 09:28 At the request of: LACEY CASE MD Procedure: XR ankle RT min 3V 3 views right foot plain film COMPARISON:None HISTORY: Right foot and ankle pain. Injury ACUTE FINDINGS: None DEGENERATIVE CHANGE: Mild SOFT TISSUE FINDINGS: Unremarkable JOINT EFFUSION: None POSTOP CHANGES: None BONE MINERALIZATION: Adequate XR/XR ankle RT min 3V IMPRESSION: No acute findings. 3 views right ankle No acute displaced fracture. Calcaneal spurring. Lateral soft tissue prominence. IMPRESSION: No acute displaced fracture Impression dictated by: Jaime Mims M.D. 03/02/2025 9:28 AM Dictation Location: [facility] Electronically authenticated by: [id number] Y Date: 03/02/2025 09:28
--- NOTE | 2025-03-01 21:51 | ED_ITS ---
HPI HPI - Extremity Injury (Lower) General Chief Complaint: Extremity Injury, Lower Stated Complaint: LE INJURY Time Seen by Provider: 03/01/25 21:48 Source: patient Mode of arrival: Wheelchair Limitations: no limitations History of Present Illness HPI Narrative: obese male jumped into a pool. Was not aware the water was only 3ft and landed on his right foot injuring the right ankle. Able to walk on the ankle but is painful. Most of the pain is at the Achilles and heel. Denies other injury. Neg numbness or foot weakness. Related Data Allergies Allergy/AdvReac Type Severity Reaction Status Date / Time codeine AdvReac Severe Anaphylaxis Verified 03/01/25 21:46 morphine AdvReac Severe Anaphylaxis Verified 03/01/25 21:46 Opioid HPI Opioid Management Most Recent Pain and Opioid Data: Last Pain Scale 5 Today, 21:49 Last ED Pain Assessment Today, 21:49 Review of Systems ROS Status of ROS 10 or more systems reviewed and unremark able except as noted in history and below PFSH PFSH Social History Little interest or pleasure in doing things: not at all Feeling down, depressed, or hopeless: not at all Exam Constitutional Vital Signs, click to edit/add: Last Vital Signs Temp 98.5 F 03/01/25 21:47 Pulse 75 03/01/25 21:47 Resp 19 03/01/25 21:47 BP 165/112 H 03/01/25 21:47 Pulse Ox 98 03/01/25 21:47 O2 Del Method Room Air 03/01/25 21:47 Common normals: no apparent distress, average body habitus, oriented x3, no limitations, healthy appearing, alert and well nourished [facility] Common normals: normocephalic and head/scalp atraumatic Eye Common normals: EOMs intact bilaterally and conjunctivae normal Respiratory Common normals: normal respiratory effort, no retractions, no use of accessory muscles and clear to auscultation bilaterally Cardio Common normals: no JVD, regular rate, regular rhythm and S1 normal heart sound GI Common normals: Normal to inspection, nondistended, normoactive bowel sounds present, soft to palpation and non-tender Extremity Other: swelling and tenderness right bimalleolar no discoloration. mild tenderness of proximal foot Neuro Common normals: oriented x3, CN's II-XII intact bilaterally, moves all extremities and no focal motor deficits Psych Appearance: grossly normal Course Vital Signs Vital signs: Vital Signs Temperature 98.5 F 03/01/25 21:47 Pulse Rate 75 03/01/25 21:47 Respiratory Rate 19 03/01/25 21:47 Blood Pressure 165/112 H 03/01/25 21:47 Pulse Oximetry 98 03/01/25 21:47 Oxygen Delivery Method Room Air 03/01/25 21:47 Temperature 98.5 F 03/01/25 21:47 Pulse Rate 75 03/01/25 21:47 Respiratory Rate 19 03/01/25 21:47 Blood Pressure 165/112 H 03/01/25 21:47 Pulse Oximetry 98 03/01/25 21:47 Oxygen Delivery Method Room Air 03/01/25 21:47 MDM - Extremity Injury (Lower) MDM Narrative Medical decision making narrative: patient injured right ankle when he jump in a shallow pool tonight. Able to walk but painful. Has swelling bilat malleoli. My preliminary review with possible avulsion fracture lateral malleolus. Patient placed in CAM boot and crutches and is to follow up with his orthopedic surgeon Discharge Plan Discharge Chief Complaint: Extremity Injury, Lower Clinical Impression: Ankle fracture Patient Disposition: Home, Self-Care Print Language: Bruneian Instructions: Ankle Fracture (ED), Crutch Instructions (ED) Additional Instructions: follow up with your doctor next week. Keep foot elevated. use ibuprofen or similar for pain Referrals: JONATHAN HAWK [Primary Care Provider, [facility]] - 1 week
[2025-03-02 00:07] VITALS: BP 130/65; PULSE 66; O2SAT 99
== END 2025-03-02 00:10 | disposition home or self-care (01) ==
PROVIDERS: Emergency Provider Internal Medicine; PCP Family Medicine
DX: S82.891A Other fracture of right lower leg, initial encounter for closed fracture (principal); W16.522A Jumping or diving into swimming pool striking bottom causing other injury, initial encounter; E66.9 Obesity, unspecified; Z68.43 Body mass index [BMI] 50.0-59.9, adult
CPT/HCPCS: 73610; 73630; 99283